=== PATIENT | female | born 1970 | race Caucasian/White ===

== ENCOUNTER 2021-05-18 12:16 | Emergency (ER) | payer OTHER ==
[2021-05-18 12:48] LABS: Absolute Lymphocytes (CBC) 2.5 K/uL (0.7-4.9); Hematocrit 35.2 % (36.0-45.0); Lymphocytes % 31.7 % (15.3-44.8); MPV 8.5 fL (7.6-11.3); RBC Red Blood Cell Count 3.94 M/uL (3.86-4.86)
--- NOTE | 2021-05-18 13:05 | RAD REPORT ---
EXAM DESCRIPTION: CT - Head Brain Wo Cont - 05/18/2021 12:53 pm COMPARISON: None. TECHNIQUE: Axial 5 mm thick images of the head were obtained without IV contrast. All CT scans are performed using dose optimization technique as appropriate and may include automated exposure control or mA/KV adjustment according to patient size. FINDINGS: No intracranial hemorrhage, mass, edema or shift of mid-line structures. No acute infarcti on changes seen. No abnormal extra-axial fluid collections. Mastoid air cells and visualized portions of the paranasal sinuses are clear. No acute bony findings. IMPRESSION: Negative non-contrast CT head examination.
[2021-05-18 13:08] LABS: ALT/SGPT 41 U/L (12-78); AST/SGOT 25 U/L (15-37); Albumin 3.4 g/dL (3.4-5.0); Alkaline Phosphatase 73 U/L (45-117); BUN Blood Urea Nitrogen 22 mg/dL (7-18); Bicarbonate 26 mmol/L (21-32); Bilirubin Direct < 0.1 mg/dL (0-0.2); Bilirubin Total 0.4 mg/dL (0.2-1.0); Glucose Level 118 mg/dL (74-106); Magnesium 1.8 mg/dL (1.8-2.4); NT PRO-BNP 39 pg/mL (<125); Potassium 3.2 mmol/L (3.5-5.1); Protein, Total 6.5 g/dL (6.4-8.2); Sodium Level 141 mmol/L (136-145); Troponin (Emerg Dept Use Only) < 0.02 ng/mL (0.0-0.045)
--- NOTE | 2021-05-18 13:17 | RAD REPORT ---
EXAM DESCRIPTION: [place] Single View05/18/2021 1:10 pm CLINICAL HISTORY: Syncope COMPARISON: none FINDINGS: The lungs appear clear of acute infiltrate. The heart is normal size IMPRESSION: No acute abnormalities displayed. If the patient's symptoms persist PA and lateral ches t series be recommended
[2021-05-18 13:40] LABS: Protime INR 1.05
--- NOTE | 2021-05-18 14:45 | ER ---
Nurse's Notes [facility] Name: Danitza Ceron Age: 50 yrs Sex: Female : 1970 Arrival Date: 05/18/2021 Time: 12:20 Bed 2 Private MD: Diagnosis: Syncope Presentation: 05/18 12:23 Chief complaint: EMS states: PT donated blood around 11 today and was feeling okay. ss While getting a manicure patient reportedly had what was described as a mild seizure with foaming at the mouth. Upon EMS arrival, patient was awake and alert but c/o nausea and dizziness. Coronavirus screen: Client denies travel out of the [place] in the last 14 days. Ebola Screen: Patient denies exposure to infectious person. Patient denies travel to an Ebola-affected area in the 21 days before illness onset. Initial Sepsis Screen: Does the patient meet any 2 criteria? No. Patient's initial sepsis screen is negative. Does the patient have a suspected source of infection? No. Patient's initial sepsis screen is negative. Risk Assessment: Do you want to hurt yourself or someone else? Patient reports no desire to harm self or others. Onset of symptoms was May 18, 2021. Care prior to arrival: Medication(s) given: Normal saline infusion, 500 mL, zofran 4 mg, IV initiated. 20 GA, in the right antecubital area. 12:23 Method Of Arrival: EMS: [facility] 12:23 Acuity: MERCED 3 ss STRAP SETTER: 14:00 LMP N/A - Irregular menses jd3 Historical: - Allergies: 12:29 PENICILLINS; ss - PMHx: 12:29 Hypertension; ss - Immunization history:: Adult Immunizations up to date. - Social history:: Smoking status: Patient denies any tobacco usage or history of. Screenin:51 Abuse screen: Denies threats or abuse. Nutritional screening: No deficits noted. jd3 Tuberculosis screening: No symptoms or risk factors identified. Fall Risk Ambulatory Aid- None/Bed Rest/Nurse Assist (0 pts). Gait- Normal/Bed Rest/Wheelchair (0 pts) Mental Status- Oriented to own ability (0 pts). Total Gates Fall Scale indicates No Risk (0-24 pts). Assessment: 12:49 General: Appears in no apparent distress. comfortable, Behavior is calm, cooperative, jd3 appropriate for age, Reports fatigue for 0-12 hours. Pain: Denies pain. Neuro: Level of Consciousness is awake, alert, obeys commands, Oriented to person, place, time, situation, Reports a syncopal episode. Cardiovascular: Denies chest pain, Capillary refill < 3 seconds Patient's skin is warm and dry. Rhythm is regular. Respiratory: Airway is patent Respiratory effort is even, unlabored, Respiratory pattern is regular, symmetrical, Denies cough, shortness of breath. GI: No signs and/or symptoms were reported involving the gastrointestinal system. Patient currently denies nausea, vomiting. : No signs and/or symptoms were reported regarding the genitourinary system. EENT: No signs and/or symptoms were reported regarding the EENT system. Derm: Skin is intact, Skin is dry, Skin is normal, Skin temperature is warm. Musculoskeletal: Circulation, motion, and sensation intact. Range of motion: intact in all extremities. 14:02 Reassessment: Patient appears in no apparent distress at this time. Patient and/or jd3 family updated on plan of care and expected duration. Pain level reassessed. Patient is alert, oriented x 3, equal unlabored respirations, skin warm/dry/pink. Patient states feeling better. 15:07 Reassessment: Patient appears in no apparent distress at this time. Patient and/or jd3 family updated on plan of care and expected duration. Pain level reassessed. Patient is alert, oriented x 3, equal unlabored respirations, skin warm/dry/pink. Patient states feeling better. Vital Signs: 12:23 BP 133 / 78; Pulse 60; Resp 15; Temp 97.8(TE); Pulse Ox 99% on R/A; Weight 67.13 kg; Height 4 ft. 11 in. (149.86 cm); Pain 0/10; 14:02 BP 106 / 88; Pulse 59; Resp 16 S; Pulse Ox 100% on R/A; jd3 15:08 BP 107 / 80; Pulse 61; Resp 17 S; Pulse Ox 100% on R/A; jd3 12:23 Body Mass Index 29.89 (67.13 kg, 149.86 cm) ED Course: 12:20 Patient arrived in ED. 12:21 Abner Negrete PA [facility] 12:21 Rober Young MD is Attending Physician. [facility] 12:23 Luis Garzon, RN is Primary Nurse. jd3 12:28 Triage completed. ss 12:29 Arm band placed on right wrist. ss 12:49 Maintain EMS IV. Dressing intact. Good blood return noted. Site clean \T\ dry. Gauge \T\ gurmeet 3 site: 20 G right AC. 12:50 Patient has correct armband on for positive identification. Placed in gown. Bed in low jd3 position. Call light in reach. Side rails up X2. Adult w/ patient. compliance monitor on. Pulse ox on. NIBP on. 12:54 CT Head Brain wo Cont In Process Unspecified. EDMS 13:10 XRAY Chest (1 view) In Process Unspecified. EDMS 15:07 No provider procedures requiring assistance completed. IV discontinued, intact, jd3 bleeding controlled, No redness/swelling at site. Pressure dressing applied. Administered Medications: No medications were administered Outcome: 14:44 Discharge ordered by MD. [facility] 15:07 Discharged to home ambulatory, with family. jd3 15:07 Condition: stable 15:07 Discharge instructions given to patient, family, Instructed on discharge instructions, follow up and referral plans. Demonstrated understanding of instructions, follow-up care. 15:09 Patient left the ED. jd3 Signatures: Dispatcher [employer] EDMS Abner Negrete PA PA jmm Smirch, Shelby, RN RN Luis Peres, RN RN jd3 Corrections: (The following items were deleted from the chart) 15:09 14:00 BP 107 / 80; Pulse 61bpm; Resp 17bpm; Spontaneous; Pulse Ox 100% RA; jd3 jd3
--- NOTE | 2021-05-18 14:45 | EDPHYS ---
Physician Documentation [facility] Name: Danitza Ceron Age: 50 yrs Sex: Female : 1970 Arrival Date: 05/18/2021 Time: 12:20 Bed 2 Private MD: ED Physician Rober Young HPI: 05/18 12:23 This 50 yrs old Female presents to ER via EMS with complaints of Syncope. jmm 12:23 The patient has experienced syncope. Onset: The symptoms/episode began/occurred jmm acutely, just prior to arrival. Associated injury: The patient did not suffer any apparent associated injury. Associated signs and symptoms: Pertinent negatives: abdominal pain. The patient has not experienced similar symptoms in the past. This is a 50 year old female with a history of htn that presents to the ED with complaints of syncope which occurred after giving blood. Seizure like activity was witnessed according to EMS. Patient denies history of seizures. Patient denies chest pain or shortness of breath. . CELL CHANGER: 14:00 LMP N/A - Irregular menses jd3 Historical: - Allergies: 12:29 PENICILLINS; ss - PMHx: 12:29 Hypertension; ss - Immunization history:: Adult Immunizations up to date. - Social history:: Smoking status: Patient denies any tobacco usage or history of. ROS: 12:23 Constitutional: Negative for fever, chills, and weight loss, Cardiovascular: Negative jmm for chest pain, palpitations, and edema, Respiratory: Negative for shortness of breath, cough, wheezing, and pleuritic chest pain, Abdomen/GI: Negative for abdominal pain, nausea, vomiting, diarrhea, and constipation. 12:23 Neuro: Positive for seizure activity. 12:23 All other systems are negative. Exam: 12:23 Constitutional: This is a well developed, well nourished patient who is awake, alert, jmm and in no acute distress. Head/Face: atraumatic. Eyes: EOMI, no conjunctival erythema appreciated ENT: Moist Mucus Membranes Neck: Trachea midline, Supple Chest/axilla: Normal chest wall appearance and motion. Cardiovascular: Regular rate and rhythm. No edema appreciated Respiratory: Normal respirations, no respiratory distress appreciated Abdomen/GI: Non distended, soft Back: Normal ROM Skin: General appearance color normal MS/ Extremity: Moves all extremities, no obvious deformities appreciated, no edema noted to the lower extremities 12:23 Neuro: Orientation: is normal, Mentation: is normal, Memory: is normal. 12:23 Psych: Behavior/mood is pleasant, cooperative. Vital Signs: 12:23 BP 133 / 78; Pulse 60; Resp 15; Temp 97.8(TE); Pulse Ox 99% on R/A; Weight 67.13 kg; ss Height 4 ft. 11 in. (149.86 cm); Pain 0/10; 14:02 BP 106 / 88; Pulse 59; Resp 16 S; Pulse Ox 100% on R/A; jd3 15:08 BP 107 / 80; Pulse 61; Resp 17 S; Pulse Ox 100% on R/A; jd3 12:23 Body Mass Index 29.89 (67.13 kg, 149.86 cm) ss MDM: 12:33 Patient medically screened. antonette 14:40 Data reviewed: vital signs, nurses notes. Counseling: I had a detailed discussion with rod the patient and/or guardian regarding: the historical points, exam findings, and any diagnostic results supporting the discharge/admit diagnosis, lab results, radiology results, the need for outpatient follow up, to return to the emergency department if symptoms worsen or persist or if there are any questions or concerns that arise at home. 14:43 ED course: Patient states feeling much better. Denies SOB. Swisher syncope rules [facility] negative. Patient is given strict return precautions. patient understood and agrees with the plan of care. . 05/18 12:23 Order name: Basic Metabolic Panel [facility] 05/18 12:23 Order name: CBC with Diff [facility] 05/18 12:23 Order name: LFT's; Complete Time: 13:14 [facility] 05/18 12:23 Order name: Magnesium; Complete Time: 13:14 [facility] 05/18 12:23 Order name: NT PRO-BNP; Complete Time: 13:14 [facility] 05/18 12:23 Order name: PT-INR; Complete Time: 13:54 [facility] 05/18 12:23 Order name: Troponin (emerg Dept Use Only); Complete Time: 13:14 [facility] 05/18 12:23 Order name: XRAY Chest (1 view); Complete Time: 13:26 [facility] 05/18 12:23 Order name: EKG; Complete Time: 12:24 [facility] 05/18 12:23 Order name: Cardiac monitoring; Complete Time: 12:24 [facility] 05/18 12:23 Order name: EKG - Nurse/Tech; Complete Time: 12:49 [facility] 05/18 12:23 Order name: CT Head Brain wo Cont; Complete Time: 13:14 [facility] 05/18 12:24 Order name: Basic Metabolic Panel; Complete Time: 13:14 [facility] 05/18 12:24 Order name: CBC with Automated Diff; Complete Time: 12:54 [facility] 05/18 12:23 Order name: IV Saline Lock; Complete Time: 12:49 [facility] 05/18 12:23 Order name: Labs collected and sent; Complete Time: 12:49 [facility] 05/18 12:23 Order name: O2 Per Protocol; Complete Time: 12:24 [facility] 05/18 12:23 Order name: O2 Sat Monitoring; Complete Time: 12:24 [facility] Administered Medications: No medications were administered Disposition: 17:13 Co-signature as Attending Physician, Rober Young MD I agree with the assessment and kdr plan of care. Disposition Summary: 05/18/21 14:44 Discharge Ordered Location: Home [facility] Condition: Stable [facility] Diagnosis - Syncope [facility] Followup: [facility] - With: Private Physician - When: 2 - 3 days - Reason: Recheck today's complaints, Continuance of care, Re-evaluation by your physician Discharge Instructions: - Discharge Summary Sheet [facility] - Syncope [facility] Forms: - Medication Reconciliation Form [facility] - Thank You Letter [facility] - Antibiotic Education [facility] - Prescription Opioid Use [facility] Signatures: Dispatcher [employer] Rober Mares MD MD kdr Mickail, Joel, PA PA antonette Roselyn Merritt, RN RN ss
--- OUTSIDE RECORDS SUMMARY | 2021-05-18 15:29 | XMS REPORT | Continuity of Care Document ---
:1970 Author Organization [facility] t Address [address] [place] [address] [address] [place] [address] Care Team Providers Name Role Phone Steph Herrera OT Attending Clinician Unavailable Problems This patient has no known problems. Allergies, Adverse Reactions, Alerts This patient has no known allergies or adverse reactions. Medications This patient has no known medications. Procedures This patient has no known procedures. Encounters Start End Encounter Admission Attending Care Care Encounter Source Date/Time Date/Time Type Type Clinicians Facility Department ID 2020-12-29 2020-12-29 Ancillary RADHA Herrera [id number] 13:05:46 14:05:46 Visit Regi Choi [facility] [id number] [facility] [id number] [facility] [id number] [address] ([facility]) Results This patient has no known results.
[2021-05-18 15:35] VITALS: TEMP 97.8
[2021-05-18 15:36] VITALS: O2SAT 100
[2021-05-18 15:37] VITALS: BP 107/80
--- NOTE | 2021-05-19 08:06 | EKG ---
Test Date: 2021-05-18 Test Time: 12:42:05 Earring Maker: ANATOLIY MEASUREMENT RESULTS: Intervals: Rate: 60 AK: 190 QRSD: 92 QT: 446 QTc: 446 [place]: P: 36 AK: 190 QRS: 13 T: 56 INTERPRETIVE STATEMENTS: Normal sinus rhythm Anteroseptal infarct, age undetermined Abnormal ECG No previous ECG available for comparison Electronically Signed On 05-19-21 08:03:44 CDT by Rusty Freeman
== END 2021-05-18 15:09 | disposition home or self-care (01) ==
LOC: ER 12:16
DX: R55 Syncope and collapse (principal); R56.9 Unspecified convulsions; I10 Essential (primary) hypertension; Z88.0 Allergy status to penicillin
CPT/HCPCS: 36415; 70450; 71045; 80048; 80076; 83735; 83880; 84484; 85025; 85610; 93005; 99284